=== PATIENT | male | born 1985 | race Asian ===

== ENCOUNTER 2017-05-23 13:56 | Emergency (ER) | payer OTHER ==
[2017-05-23 14:07] VITALS: BP 122/82; PULSE 87; RESP 18; TEMP 98; O2SAT 97
--- NOTE | 2017-05-23 14:10 | EDPHY ---
H & P Time Seen by Provider: 05/23/17 13:58 HPI/ROS: Chief Complaint: Right arm injury HPI: 31-year-old male was at work trying to fix a tape machine. He says that when activate he got his caught arm caught in a and there was a pulling against his skin on the lateral aspect of his arm when it got caught in the dispenser. There was no crush injury. He has no bony injury. He is able to flex and extend. He is here for evaluation for workman's Comp. ROS: 10 point Review of Systems is negative except as noted in the HPI. PMH: None Physical Exam: General: Awake, alert, no acute distress right arm: He has got ecchymosis over the lateral aspect of his right forearm just distal to the elbow joint. There is no large hematoma collection. He has full flexion extension strength. He has no bony tenderness over the distal humerus radial head or ulna. Compartments are soft. He has full flexion extension strength of his biceps and triceps and his brachial radialis. He has 2+ radial ulnar pulses. Capillary refills less than 2 sec. Sensation is intact in the radial, median, and ulnar nerve distribution. Skin: No rash Allergies/Adverse Reactions: No Known Allergies Allergy (Unverified 05/23/17 14:04) Home Medications: Medication Instructions Recorded NK [No Known Home Meds] 05/23/17 Medical Decision Making ED Course/Re-evaluation: 31-year-old male with shear force injury on his right forearm. There is no break in the skin. He does have ecchymosis. There is no large subcutaneous hematoma. There is no soft tissue tenderness or deformity. There is no bony tenderness to deformity. Compartments are soft. He has normal perfusion and sensation. Departure - Departure Disposition: Home, Routine, Self-Care Clinical Impression: Contusion Condition: Good Instructions: Contusion in Adults (ED) Additional Instructions: Follow up with workman's Comp today. Return to the emergency department for increasing pain, numbness, weakness, fevers, chills, or any other concerns. Referrals: Work [place] [facility] [place] - As per Instructions
== END 2017-05-23 14:39 | disposition home or self-care (01) ==
LOC: CED 13:56
DX: S40.021A Contusion of right upper arm, initial encounter (principal); W23.1XXA Caught, crushed, jammed, or pinched between stationary objects, initial encounter

== ENCOUNTER 2017-05-27 14:22 | Emergency (ER) | payer OTHER ==
[2017-05-27 14:32] VITALS: BP 127/78; PULSE 80; RESP 16; TEMP 98.8; O2SAT 98
--- NOTE | 2017-05-27 16:09 | EDPHY ---
H & P Time Seen by Provider: 05/27/17 15:11 HPI/ROS: HPI Recheck of right upper extremity injury. 31-year-old male by private vehicle. He was seen in the emergency department here on May [address] Shahbaz childers. He was at work. He was working on a belted industrial tractor driver tape machine. His right mid lateral upper extremity got caught in the belted industrial tractor driver and he sustained a burn injury/fraction burn to the lateral anterior aspect of his right antecubital fossa extending across the joint line from the distal arm to the proximal forearm. He is here for a wound check. He denies any fever. He has not had bleeding. No weakness or loss of sensation in the extremity. No other complaint. ROS: Constitutional: No fever, no chills. No weakness. Musculoskeletal: As above. Skin: As above. Neurological: No focal weakness or altered sensation. Past medical history: As above. No other significant past medical history. Social history: Nonsmoker. Here by himself. Physical Exam: General Appearance: Alert, no distress. This patient is responding to questions appropriately and in full sentences. This patient appears well- hydrated and well-nourished. Eyes: Pupils equal and round no pallor or injection. No lid edema, erythema or injection. Right upper extremity exam: Significant for a friction burn type injury involving the lateral aspect of the antecubital fossa, extending from the distal arm through the proximal forearm. He is able to extend the elbow fully. He is able to flex the elbow fully. The area appears to be scabbed over. This is a partial thickness friction burn injury. There is no associated erythema or edema at the wound edges to suggest infection. The right upper extremity is neurovascularly intact. Neurological: Motor sensory function is grossly intact. Cranial nerves are normal. Gait is normal. Skin: Warm and dry, no rashes. Extremities are symmetrical. All joints range without pain or impingement except noted. Psychiatric: No agitation. No depression. Database: EKG: Imaging: Procedures: Emergency department course: Vital signs reviewed and are normal. The wound area was cleansed with warm water and baby shampoo. After this was dried thoroughly. Bacitracin ointment was applied followed by a Mepilex burn dressing. Plan will be to have the patient follow up with his workman's Comp physician on Monday or return here on Monday for recheck of this wound. At this time he does not have any significant contracture of the antecubital area and elbow joint. The follow-up plan was explained to the patient thoroughly. He is to leave the dressing in place until seen on follow-up in 2 days. Return to emergency department precautions reviewed with him. All of his questions were answered. He was discharged in good condition. Differential Diagnosis: The differential diagnosis on this patient includes but is not limited to burn injury to right upper extremity. Cellulitis, wound infection unlikely. This represents a partial list of diagnoses considered. These considerations are based on history, physical exam, past history, reassessment and diagnostic testing. Smoking Status: Never smoked Constitutional: Initial Vital Signs Temperature (C) 37.1 C 05/27/17 14:30 Heart Rate 80 05/27/17 14:30 Respiratory Rate 16 05/27/17 14:30 Blood Pressure 127/78 H 05/27/17 14:30 O2 Sat (%) 98 05/27/17 14:30 O2 Delivery Mode Room Air Allergies/Adverse Reactions: No Known Allergies Allergy (Unverified 05/23/17 14:04) Home Medications: Medication Instructions Recorded NK [No Known Home Meds] 05/23/17 Departure - Departure Disposition: Home, Routine, Self-Care Clinical Impression: Burn of right upper extremity Condition: Good Instructions: Second Degree Burn (ED) Additional Instructions: Read and follow provided instructions. Follow-up with workman's Comp physician on Monday for recheck of your wound. If you are unable to do this, return here to the emergency department for wound check and re-evaluation. Ibuprofen dosin mg every 6 hours with meals for the next 3 days only. Return to the emergency department for worsening pain, fever, swelling, discoloration or other serious concerns. Referrals: NONE *PRIMARY CARE P,. [Primary Care Provider] - As per Instructions
== END 2017-05-27 16:40 | disposition home or self-care (01) ==
LOC: CED 14:22
PROC: 2W2LX4Z Dressing of Right Lower Extremity using Bandage (ICD-10-PCS; principal; 2017-05-27)
DX: T22.211A Burn of second degree of right forearm, initial encounter (principal); X58.XXXA Exposure to other specified factors, initial encounter; Y92.69 Other specified industrial and construction area as the place of occurrence of the external cause; Y99.0 Civilian activity done for income or pay; Y93.89 Activity, other specified